=== PATIENT | female | born 1985 ===

== ENCOUNTER → 2020-07-24 | Outpatient (CLI) | payer MEDICAID ==
--- NOTE | 2020-07-24 16:27 | Diagnostic Imaging Report ---
INDICATION: patient, survey. TECHNIQUE: Multiple real-time grayscale images were obtained over the gravid uterus. COMPARISON: None FINDINGS: A single live intrauterine fetus is seen measuring at 20 weeks 1 day by composite measurements. Fetus is in transverse presentation. Placenta is anterior with no evidence of previa. heart rate is 144 bpm. Amniotic fluid is qualitatively normal. There is no subchorionic bleed. Maternal adnexa were not well seen but showed no free fluid. survey showed normal-appearing kidneys and bladder and stomach. Normal-appearing intracranial ventricles were seen. Four-chamber heart view was unremarkable. Cord insertion and three-vessel cord were normal. Views of the spine were normal. facial structures were not well visualized. Biometrical measurements are as follows: Biparietal 4.54 cm, age 19 weeks 6 days. Head circumference 17.45 cm, age 20 weeks 0 days. Abdominal circumference 15.25 cm, age 20 weeks 4 days. Femur length 3.17 cm, age 19 weeks 6 days. Sonographic estimate age: 20 weeks 1 days. Sonographic estimated date of delivery: 12/10/2020. Estimated Weight: 335 gm (+/- 49 gm). LMP percentile: 38%. heart rate: 144 beats per minute. number: 1 of 1. IMPRESSION: Single live intrauterine fetus measuring at 20 weeks 1 day in size. There is no detectable anatomical abnormality, although facial structures were not well seen. Dictated by: Dictated on workstation # [id number]
== END ==
LOC: RAD 14:17
PROVIDERS: ATTEND Obstetrics & Gynecology
DX: Z34.02 Encounter for supervision of normal first pregnancy, second trimester (principal); Z3A.20 20 weeks gestation of pregnancy
CPT/HCPCS: 76805

== ENCOUNTER 2020-08-17 10:31 | Emergency (ER) | payer MEDICAID ==
[~2020-08-17] VITALS: Ht 172 cm; Wt 113.0 kg
[2020-08-17] MEDS ORDERED: PREN-51 PO (11:06)
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
[2020-08-17] MEDS ORDERED: HYDROcodone/APAP 5 MG/325 MG (LORTAB) TAB PO ONE (11:45)
[2020-08-17] MEDS ORDERED: ACHD5005 PO (12:51)
[2020-08-17 12:58] VITALS: BP 125/72
== END 2020-08-17 12:58 | disposition home or self-care (01) ==
LOC: EDUNIT# 10:31 → ER 10:33
DX: O9A.212 Injury, poisoning and certain other consequences of external causes complicating pregnancy, second trimester (principal); T22.212A Burn of second degree of left forearm, initial encounter; T23.262A Burn of second degree of back of left hand, initial encounter; F17.210 Nicotine dependence, cigarettes, uncomplicated; Z3A.24 24 weeks gestation of pregnancy; X10.2XXA Contact with fats and cooking oils, initial encounter